=== PATIENT | female | born 1970 | race Two or more races ===

== ENCOUNTER 2017-08-19 13:50 | Emergency (ER) | payer SELFPAY ==
[2017-08-19] MEDS ORDERED: Sodium Chloride 0.9% 1,000 ML IV STA (14:26)
[2017-08-19] MEDS ORDERED: Ondansetron 4 MG/2 ML SDV IVPUSH ONE (14:26)
[2017-08-19] MEDS ORDERED: Sodium Chloride 0.9% 10 ML Syringe FLUSH PRN (14:26)
--- NOTE | 2017-08-19 15:21 | EDM.PDOC ---
ED HPI GENERAL MEDICAL PROBLEM - General Chief Complaint: Gastrointestinal Problem Stated Complaint: HEADACHE,VOMITING Time Seen by Provider: 08/19/17 14:00 Source of Information: Reports: Patient, Family History Limitations: Reports: Language Barrier - History of Present Illness INITIAL COMMENTS - FREE TEXT/NARRATIVE: The patient presents with dizziness, nausea, vomiting and diarrhea. This all started today. She was driving. She said she felt like she was spinning. She has no headache, fever, chills, cough, chest pain, shortness of breath, or abdominal pain. This has never happened to her before. She has no hearing loss of ringing in her ears. She has no medical problems Onset: Sudden Duration: Hour(s): Severity: Moderate Improves with: Reports: Immobilization Worsens with: Reports: Movement Context: Reports: Activity (She was driving when this started) Associated Symptoms: Reports: Nausea/Vomiting. Denies: Chest Pain, Cough, Fever /Chills, Headaches, Shortness of Breath - Related Data Allergies Allergy/AdvReac Type Severity Reaction Status Date / Time No Known Allergies Allergy Verified 08/19/17 14:04 Home Meds: Home Meds ClonazePAM [KlonoPIN] 0.5 mg PO ASDIRECTED 08/19/17 [History] Meclizine [Antivert] 25 mg PO Q6H PRN #20 tab 08/19/17 [Rx] Past Medical History - Past Surgical History Female Surgical History: Reports: Section Social & Family History - Tobacco Use Smoking Status *Q: Never Smoker - Caffeine Use Caffeine Use: Reports: Coffee, Soda, Tea - Recreational Drug Use Recreational Drug Use: No ED ROS GENERAL - Review of Systems Review Of Systems: See Below Constitutional: Reports: No Symptoms HEENT: Reports: No Symptoms Respiratory: Reports: No Symptoms Cardiovascular: Reports: No Symptoms Endocrine: Reports: No Symptoms GI/Abdominal: Reports: Nausea, Vomiting. Denies: Abdominal Pain : Reports: No Symptoms Musculoskeletal: Reports: No Symptoms Skin: Reports: No Symptoms ED EXAM, GI/ABD - Physical Exam Exam: See Below Exam Limited By: No Limitations General Appearance: Alert, No Apparent Distress Eyes: Left: Nystagmus, Bilateral: EOMI Ears: Normal External Exam Nose: Normal Inspection Head: Atraumatic, Normocephalic Neck: Normal Inspection Respiratory/Chest: No Respiratory Distress, Lungs Clear, Normal Breath Sounds Cardiovascular: Regular Rate, Rhythm, No Edema, No Murmur GI/Abdominal Exam: Soft, Non-Tender, No Organomegaly, No Mass Back Exam: Normal Inspection Course - Vital Signs Last Recorded V/S: Last Vital Signs Temp 97.1 F 08/19/17 13:59 Pulse 68 08/19/17 13:59 Resp 20 08/19/17 13:59 BP 123/75 08/19/17 13:59 Pulse Ox 100 08/19/17 13:59 - Orders/Labs/Meds Orders: Active Orders 24 hr Category Date Time Status Peripheral IV Care [RC] . DIRECTED Care 08/19/17 14:27 Active Sodium Chloride 0.9% [Saline Flush] Med 08/19/17 14:26 Active 10 ml FLUSH ASDIRECTED PRN ED Antiemetic Medication Reflex [OM.PC] Stat Oth 08/19/17 14:27 Ordered Peripheral IV Insertion Adult [OM.PC] Stat Oth 08/19/17 14:26 Ordered Medication Orders Sodium Chloride (Saline Flush) 10 ml FLUSH ASDIRECTED PRN PRN Reason: Keep Vein Open Last Admin: 08/19/17 14:38 Dose: 10 ml Labs: Laboratory Tests 08/19/17 08/19/17 08/19/17 Range/Units 14:40 14:40 14:40 WBC 13.22 H (3.98-10.04) K/mm3 RBC 4.82 (3.98-5.22) M/mm3 Hgb 13.8 (11.2-15.7) gm/L Hct 41.8 (34.1-44.9) % MCV 86.7 (79.4-94.8) fl MCH 28.6 (25.6-32.2) pg MCHC 33.0 (32.2-35.5) g/dl RDW Std Deviation 42.5 (36.4-46.3) fL Plt Count 252 (182-369) K/mm3 MPV 11.5 (9.4-12.3) fl Neut % (Auto) 85.9 H (34.0-71.1) % Lymph % (Auto) 9.3 L (19.3-51.7) % [place] % (Auto) 4.3 L (4.7-12.5) % Eos % (Auto) 0.1 L (0.7-5.8) Baso % (Auto) 0.2 (0.1-1.2) % Neut # (Auto) 11.36 H (1.56-6.13) K/mm3 Lymph # (Auto) 1.23 (1.18-3.74) K/mm3 [place] # (Auto) 0.57 H (0.24-0.36) K/mm3 Eos # (Auto) 0.01 L (0.04-0.36) K/mm3 Baso # (Auto) 0.03 (0.01-0.08) K/mm3 Manual Slide Review Normal smear Sodium 137 (136-145) mEq/L Potassium 3.6 (3.5-5.1) mEq/L Chloride 102 (98-107) mEq/L Carbon Dioxide 26 (21-32) mEq/L Anion Gap 12.6 (5-15) BUN 15 (7-18) mg/dL Creatinine 0.8 (0.55-1.02) mg/dL Est Cr Clr Drug Dosing 68.76 mL/min Estimated GFR (MDRD) > 60 (>60) mL/min BUN/Creatinine Ratio 18.8 H (14-18) Glucose 138 H (74-106) mg/dL Calcium 9.4 (8.5-10.1) mg/dL Total Bilirubin 0.9 (0.2-1.0) mg/dL AST 21 (15-37) U/L ALT 22 (14-59) U/L Alkaline Phosphatase 80 (46-116) U/L Total Protein 7.8 (6.4-8.2) g/dl Albumin 4.0 (3.4-5.0) g/dl Globulin 3.8 gm/dL Albumin/Globulin Ratio 1.1 (1-2) Lipase 86 (73-393) U/L HCG, Qual Negative (NEGATIVE) Meds: Medications Generic Name Dose Route Start Last Admin Trade Name Freq PRN Reason Stop Dose Admin Sodium Chloride 10 ml 08/19/17 14:26 08/19/17 14:38 Saline Flush FLUSH 10 ml ASDIRECTED PRN Administration Keep Vein Open Discontinued Medications Generic Name Dose Route Start Last Admin Trade Name Freq PRN Reason Stop Dose Admin Sodium Chloride 1,000 mls @ 1,000 mls/hr 08/19/17 14:26 08/19/17 14:38 Normal Saline IV 08/19/17 15:25 1,000 mls/hr .BOLUS STA Administration Meclizine HCl 25 mg 08/19/17 14:27 08/19/17 14:38 Antivert PO 08/19/17 14:28 25 mg ONETIME ONE Administration Ondansetron HCl 4 mg 08/19/17 14:26 08/19/17 14:38 Zofran IVPUSH 08/19/17 14:27 4 mg ONETIME ONE Administration - Re-Assessments/Exams Free Text/Narrative Re-Assessment/Exam: 08/19/17 15:20 I ordered an IV NS 1L bolus, zofran 4mg IV, antivert 25mg by mouth and labs. 08/19/17 15:50 Her WBC was elevated at 13.2. Her glucose is elevated at 138. Her HCG is negative. She feels better. I will get her on some antivert. Departure - Departure Time of Disposition: 16:00 Disposition: Home, Self-Care 01 Condition: Good Clinical Impression: Vertigo - Discharge Information Prescriptions: Meclizine [Antivert] 25 mg PO Q6H PRN #20 tab PRN Reason: Dizziness Referrals: PCP,None [Primary Care Provider] - Fatimah Kothari MD [Physician] - Forms: ED Department Discharge Additional Instructions: Drink plenty of fluids. Take the antivert every 6 hours as needed for dizziness. Please return if you are worse. - My Orders Last 24 Hours: My Active Orders 08/19/17 14:26 Sodium Chloride 0.9% [Saline Flush] 10 ml FLUSH ASDIRECTED PRN Peripheral IV Insertion Adult [OM.PC] Stat 08/19/17 14:27 Peripheral IV Care [RC] . DIRECTED ED Antiemetic Medication Reflex [OM.PC] Stat - Assessment/Plan Last 24 Hours: My Active Orders 08/19/17 14:26 Sodium Chloride 0.9% [Saline Flush] 10 ml FLUSH ASDIRECTED PRN Peripheral IV Insertion Adult [OM.PC] Stat 08/19/17 14:27 Peripheral IV Care [RC] . DIRECTED ED Antiemetic Medication Reflex [OM.PC] Stat
== END 2017-08-19 16:07 | disposition home or self-care (01) ==
LOC: JD.ED 13:50
DX: R42 Dizziness and giddiness (principal)
CPT/HCPCS: 36415; 80053; 83690; 84703; 85025; 96361; 96374; 99284; A9270; J2405; J7040; J7050